=== PATIENT | female | born 1985 | race Caucasian/White ===

== ENCOUNTER 2017-01-26 12:17 | Emergency (ER) | payer OTHER ==
[~2017-01-26] VITALS: Ht 165.1 cm; Wt 53.7 kg
[2017-01-26 12:32] VITALS: TEMP 36.7; Ht 165.1 cm; Wt 53.7 kg
[2017-01-26 13:48] VITALS: O2SAT 94
[2017-01-26 14:04] LABS: HEMATOCRIT 44.1 % (37-47); MEAN CELL VOLUME 86.1 fL (80-100); MEAN CORPUSCULAR HEMOGLOBIN 29.9 pg (25-34); MEAN CORPUSCULAR HGB CONC 34.7 g/dl (32-36); MEAN PLATELET VOLUME 11.3 fL (7.4-10.4); PLATELET COUNT 298 K/uL (130-400); RED BLOOD COUNT 5.12 M/uL (4.2-5.4); WHITE BLOOD COUNT 14.51 K/uL (4.8-10.8)
[2017-01-26 14:09] LABS: URINE APPEARANCE CLEAR (CLEAR); URINE BILIRUBIN NEG (NEG); URINE COLOR YELLOW; URINE EPITHELIAL CELL AUTO >30 /lpf (0-5); URINE NITRITE NEG (NEG); URINE PH 5.5 (4.5-7.5); URINE SPECIFIC GRAVITY 1.029 (1.000-1.030); UROBILINOGEN NEG (NEG); ZZUR CULT IF INDIC CLEAN CATCH YES
[2017-01-26 14:13] LABS: MANUAL MICROSCOPIC REQUIRED? NO; REVIEW REQ? YES
[2017-01-26 14:14] LABS: INR 1.1 (0.9-1.1); PROTHROMBIN TIME (PATIENT) 11.4 SECONDS (9.0-12.0)
[2017-01-26 14:24] LABS: BASO % 0.2 %; BASO ABS # 0.03 K/uL (0-0.2); COMPLETE YES; EOS % 0.3 %; IG% 0.2 %; LYMPH % 10.1 %; LYMPH ABS # 1.47 K/uL (1.2-3.4); MONO % 5.3 %; NEUT % 83.9 %
[2017-01-26 14:25] LABS: URINE MUCUS PRESENT (NONE PRSENT)
[2017-01-26 14:31] LABS: BUN/CREATININE RATIO 21.3 (10-20); CALCIUM 9.9 mg/dl (8.5-10.1); CREATININE 0.83 mg/dl (0.60-1.20); POTASSIUM 4.1 mmol/L (3.5-5.1)
[2017-01-26 14:34] LABS: ALB/GLOB RATIO 1.2 (0.9-2)
--- NOTE | 2017-01-26 15:29 | DIAGNOSTIC IMAGING REPORT ---
PELVIC COMPLETE NON OB CLINICAL HISTORY: pelvic pain/bleed PAIN COMPARISON STUDY: None FINDINGS: The uterus measured 7.4 cm. The endometrial stripe measured 9 mm. The right ovary measured 4 cm with a complex 2.3 cm cyst. The left ovary measured 2.5 cm maximum dimension with normal vascular flow. There is no ultrasonographic evidence of ovarian torsion. It should be noted that ovarian torsion can be present with normal Doppler ultrasonographic findings. There was no evidence of pathologic free pelvic fluid. IMPRESSION: 2.3 cm complex right ovarian cyst. Otherwise negative pelvic ultrasound. The above report was generated using voice recognition software. It may contain grammatical, syntax or spelling errors. Electronically signed by: Ricky Galvan M.D. 01/26/2017 3:28 PM Dictated Date/Time: 01/26/2017 3:26 PM
--- NOTE | 2017-01-26 15:39 | EMERGENCY ROOM VISIT NOTE ---
History First contact with patient: 13:00 Chief Complaint: ED VAG BLEEDING Stated Complaint: HEAVY PERIODS/BLEEDING History of Present Illness The patient is a 32 year old female who presents to the Emergency Room with complaints of menstrual cramps and bleeding today who has a history of dysmenorrhea. Patient states she started he had severe cramps around 11:30 and noon and got lightheaded and nearly passed out. She took a Motrin and now feels much better. Pain currently 2 out of 10. Nothing makes it better or worse to the superpubic area. Patient denies chest pain, dyspnea, vomiting, diarrhea, back pain, urinary symptoms, bruising, bleeding disorder. Patient is an international student from [facility]. She had a pelvic exam 3 months ago by [facility] TECHNICIAN and normal per patient. Review of Systems See HPI for pertinent positives & negatives. A total of 10 systems reviewed and were otherwise negative. Past Medical/Surgical History Gastritis Social History Smoking Status: Never Smoker Alcohol Use: occasionally Drug Use: none Occupation Status: [employer] student Current/Historical Medications Scheduled Ondasetron Odt (Zofran Odt), 4 MG SL Q6H Physical Exam Vital Signs Date Time Temp Pulse Resp B/P (MAP) Pulse Ox O2 Delivery O2 Flow Rate FiO2 01/26/17 14:22 87 18 120/91 99 Room Air 01/26/17 13:52 88 01/26/17 13:48 101 18 121/84 99 Room Air 01/26/17 13:48 94 Room Air 01/26/17 12:32 36.7 67 20 150/93 99 Room Air Physical Exam VITALS: Vitals are noted on the nurse's note and reviewed by myself. Vital signs mildly hypertensive GENERAL: Pleasant female, in no acute distress, nondiaphoretic, well-developed well-nourished. SKIN: The skin was without rashes, erythema, edema, or bruising. There is no tenting of the skin. Capillary reflex less than 2 seconds. HEAD: Normocephalic atraumatic. EARS: External auditory canals clear, tympanic membranes pearly villegas without erythema or effusion bilaterally. EYES: Pupils equal round and reactive to light and accommodation. Conjunctivae without injection, sclerae without icterus. Extraocular movements intact. NOSE: Patent, turbinates without inflammation or discharge. MOUTH: Mucous membranes moist. Pharynx without erythema or exudate. Uvula midline. Airway patent. Tongue does not deviate. NECK: Supple without nuchal rigidity. No lymphadenopathy. No thyromegaly. Cervical spine is nontender. No JVD. HEART: Regular rate and rhythm without murmurs gallops or rubs. LUNGS: Clear to auscultation bilaterally without wheezes, rales or rhonchi. No dullness to percussion. No retractions or accessory muscle use. ABDOMEN: Positive bowel sounds x 4. Normal tympanic percussion. Soft, minimally tender suprapubic region, no CVA tenderness, without masses or organomegaly. Torres sign negative. No guarding or rebound tenderness. exam: Normal external female genitalia, minimal blood in the vault, right adnexal slightly tender to palpation easily reproducing symptoms. Cultures taken and sent. Hunter present. No CMT tenderness MUSCULOSKELETAL: No muscle atrophy, erythema, or edema noted. NEURO: Patient was alert and oriented to person place and time. Normal sensation to light and sharp touch. No focal neurological deficits. Medical Decision & Procedures Laboratory Results 01/26/17 13:34 Red Blood Count 5.12, Mean Corpuscular Volume 86.1, Mean Corpuscular Hemoglobin 29.9, Mean Corpuscular Hemoglobin Concent 34.7, Mean Platelet Volume 11.3, Neutrophils (%) (Auto) 83.9, Lymphocytes (%) (Auto) 10.1, Monocytes (%) (Auto) 5.3, Eosinophils (%) (Auto) 0.3, Basophils (%) (Auto) 0.2, Neutrophils # (Auto) 12.16, Lymphocytes # (Auto) 1.47, Monocytes # (Auto) 0.77, Eosinophils # (Auto) 0.05, Basophils # (Auto) 0.03 01/26/17 13:34 Test 01/26/17 13:34 01/26/17 13:40 White Blood Count 14.51 K/uL (4.8-10.8) Red Blood Count 5.12 M/uL (4.2-5.4) Hemoglobin 15.3 g/dL (12.0-16.0) Hematocrit 44.1 % (37-47) Mean Corpuscular Volume 86.1 fL (80-100) Mean Corpuscular Hemoglobin 29.9 pg (25-34) Mean Corpuscular Hemoglobin Concent 34.7 g/dl (32-36) Platelet Count 298 K/uL (130-400) Mean Platelet Volume 11.3 fL (7.4-10.4) Neutrophils (%) (Auto) 83.9 % Lymphocytes (%) (Auto) 10.1 % Monocytes (%) (Auto) 5.3 % Eosinophils (%) (Auto) 0.3 % Basophils (%) (Auto) 0.2 % Neutrophils # (Auto) 12.16 K/uL (1.4-6.5) Lymphocytes # (Auto) 1.47 K/uL (1.2-3.4) Monocytes # (Auto) 0.77 K/uL (0.11-0.59) Eosinophils # (Auto) 0.05 K/uL (0-0.5) Basophils # (Auto) 0.03 K/uL (0-0.2) RDW Standard Deviation 39.0 fL (36.4-46.3) RDW Coefficient of Variation 12.3 % (11.5-14.5) Immature Granulocyte % (Auto) 0.2 % Immature Granulocyte # (Auto) 0.03 K/uL (0.00-0.02) Prothrombin Time 11.4 SECONDS (9.0-12.0) Prothromb Time International Ratio 1.1 (0.9-1.1) Activated Partial Thromboplast Time 25.4 SECONDS (21.0-31.0) Partial Thromboplastin Ratio 1.0 Anion Gap 8.0 mmol/L (3-11) Est Creatinine Clear Calc Drug Dose 84.0 ml/min Estimated GFR () 109.7 Estimated GFR (Non- 94.6 BUN/Creatinine Ratio 21.3 (10-20) Calcium Level 9.9 mg/dl (8.5-10.1) Total Bilirubin 0.4 mg/dl (0.2-1) Aspartate Amino Transf (AST/SGOT) 18 U/L (15-37) Alanine Aminotransferase (ALT/SGPT) 18 U/L (12-78) Alkaline Phosphatase 64 U/L (45-117) Total Protein 8.6 gm/dl (6.4-8.2) Albumin 4.6 gm/dl (3.4-5.0) Globulin 4.0 gm/dl (2.5-4.0) Albumin/Globulin Ratio 1.2 (0.9-2) Urine Color YELLOW Urine Appearance CLEAR (CLEAR) Urine pH 5.5 (4.5-7.5) Urine Specific [place] 1.029 (1.000-1.030) Urine Protein NEG (NEG) Urine Glucose (UA) NEG (NEG) Urine Ketones 1+ (NEG) Urine Occult Blood 2+ (NEG) Urine Nitrite NEG (NEG) Urine Bilirubin NEG (NEG) Urine Urobilinogen NEG (NEG) Urine Leukocyte Esterase TRACE (NEG) Urine WBC (Auto) 5-10 /hpf (0-5) Urine RBC (Auto) 5-10 /hpf (0-4) Urine Hyaline Casts (Auto) 1-5 /lpf (0-5) Urine Epithelial Cells (Auto) >30 /lpf (0-5) Urine Bacteria (Auto) 1+ (NEG) Urine Renal Epithelial Cells /lpf (0-5) Urine Pathogenic Casts /lpf (0) Urine Mucus PRESENT (NONE PRSENT) Urine Test NEG (NEG) ED Course Prior records/ancillary studies reviewed. Triage Nursing notes reviewed. The patient's history was concerning for vaginal bleeding and abdominal pain. Differential diagnosis: Etiologies such as ectopic , dysfunction uterine bleeding, bleeding dyscrasia, trauma, infection, as well as others were entertained. Physical examination: As above. Vitals signs revealed stable. ER treatment provided: Patient was observed On reassessment the patient felt better. Diagnostic interpretation by me: The labs: Mild leukocytosis. Stable H&H, mild hyperglycemia without DKA Urine test was negative. Urinalysis revealed no sign of infection. EKG: Indication nursing be: Normal sinus, normal intervals, no acute ST-T wave changes, Q waves in the inferior lateral leads with no old EKG. Impression normal sinus rhythm with Q waves in inferior and lateral leads interpreted by myself Imaging studies: Ultrasound as above PELVIC COMPLETE NON OB CLINICAL HISTORY: pelvic pain/bleed PAIN COMPARISON STUDY: None FINDINGS: The uterus measured 7.4 cm. The endometrial stripe measured 9 mm. The right ovary measured 4 cm with a complex 2.3 cm cyst. The left ovary measured 2.5 cm maximum dimension with normal vascular flow. There is no ultrasonographic evidence of ovarian torsion. It should be noted that ovarian torsion can be present with normal Doppler ultrasonographic findings. There was no evidence of pathologic free pelvic fluid. IMPRESSION: 2.3 cm complex right ovarian cyst. Otherwise negative pelvic ultrasound. The above report was generated using voice recognition software. It may contain grammatical, syntax or spelling errors. Electronically signed by: Ricky Galvan M.D. This appears to be consistent with right ovarian cyst and patient is a history of dysmenorrhea. Patient was neurovascularly and neurologically intact. She did not have acute abdomen on exam. She is well-appearing. She is advised to repeat pelvic ultrasound in 6 weeks for resolution of cyst. She is advised follow-up with GR[facility] ART TECHNICIAN in a few days or here in the ER sooner for heavy bleeding , pain, fevers, worsening signs or symptoms or as needed. By the evaluation outlined above emergent etiologies such as bleeding dyscrasia, ectopic , trauma, as well as others were deemed relatively unlikely. The pt informed about the findings as listed above. All questions were answered and pleased with the treatment. Return instructions were outlined and the patient was discharged in stable condition. Outpatient prescription management: Zofran Referral: The patient was referred to GR[facility] ART TECHNICIAN for follow-up in 2 to 3 days for a recheck of her current condition. Case reviewed with my attending. Medical Decision As above Medication Reconcilliation Current Medication List: was personally reviewed by me Blood Pressure Screening Patient's blood pressure: Normal blood pressure Impression Primary Impression: Right ovarian cyst Additional Impression: Dysmenorrhea Departure Information Dispostion Home / Self-Care Condition GOOD Prescriptions Ondasetron Odt (ZOFRAN ODT) 4 Mg Tab 4 MG SL Q6H, #10 TAB Prov: Suzanna Szymanski .JESUS 01/26/17 Referrals No Doctor, Assigned (PCP) Patient Instructions My [facility] Additional Instructions You had pelvic cultures that were taken today. Results come back in 3 days. Call back in 3 days for the results. Recommend repeat pelvic ultrasound in 6 weeks for resolution of cyst. Rest. Stay well hydrated. No strenuous activity until symptoms resolve. Zofran 4 tablet every 6 hours as needed for nausea and vomiting. Ibuprofen(Motrin, Advil) may be used for fever or pain. Use 600mg every six hours as needed. Take with food. Avoid using more than 2400mg in a 24 hour period. Do not use 2400mg per day for more than three consecutive days without physician direction. Prolonged inappropriate use can lead to stomach upset or ulcers. (AND/OR) Acetaminophen(Tylenol) may be used for fever or pain. Use 1000mg every six hours as needed. Avoid using more than 3000mg in a 24 hour period. Rest and drink plenty of fluids as tolerated. Continue current medications. Return to the ER immediately for severe pain, heavy vaginal bleeding, abdominal pain, vomiting, fevers, chest pains, difficulty breathing, worsening of your condition, or as needed. Follow up with your GRAPHIC ART TECHNICIAN in 2-3 days for a recheck of your current condition. Problem Qualifiers
[2017-01-26] MEDS ORDERED: ONDA4TAB10 SL (15:52)
[2017-01-26 15:57] VITALS: BP 124/78; PULSE 66; O2SAT 99
== END 2017-01-26 15:58 | disposition home or self-care (01) ==
LOC: C.EDB 12:20 → C.EDC 15:58
DX: N83.201 Unspecified ovarian cyst, right side (principal); N94.6 Dysmenorrhea, unspecified